=== PATIENT | male | born 1980 | race Caucasian/White ===

== ENCOUNTER 2016-08-06 09:28 | Emergency (ER) | payer OTHER ==
[~2016-08-06] VITALS: Ht 170.2 cm; Wt 69.0 kg
[2016-08-06 09:48] VITALS: Ht 170.2 cm; Wt 69.0 kg
[2016-08-06] MEDS ORDERED: IBUP400T22 PO (10:53)
--- NOTE | 2016-08-06 11:00 | ERD ---
ER Documentation Chief Complaint Date/Time DATE: 08/06/16 TIME: 10:56 Chief Complaint RING ON LEFT 4TH FINGER UNABLE TO GET OFF. HPI This is a 35-year-old male presenting to the emergency department complaining of a ring on his left fourth digit that he is unable to get off for the past 2 days. Patient states that this is a ring for his pinky finger however he put her on his left fourth digit 2 days ago. He now complains of 7 out of 10 pain with swelling of the rest of the digit. He denies any prior trauma. He denies any medical problems or taking any medications for this. Patient states that the ring is silver ROS All systems reviewed and are negative except as per history of present illness. Medications Home Meds Active Scripts Ibuprofen* (Motrin*) 400 Mg Tab, 400 MG PO Q6H Y for PAIN AND OR ELEVATED TEMP, #30 TAB Prov:SARA PACK PA-C 08/06/16 Allergies Allergies: Coded Allergies: No Known Allergy (Unverified , 08/06/16) Physical Exam Vitals Vital Signs Date Time Temp Pulse Resp B/P Pulse Ox O2 Delivery O2 Flow Rate FiO2 08/06/16 09:48 97.9 69 18 127/83 100 Physical Exam Const: Well-developed well-nourished no acute distress Head: Atraumatic Eyes: Normal Conjunctiva ENT: Normal External Ears, Nose and Mouth. Neck: Full range of motion..~ No meningismus. Resp: Clear to auscultation bilaterally Cardio: Regular rate and rhythm, no murmurs Abd: Soft, non tender, non distended. Normal bowel sounds Skin: No petechiae or rashes Back: No midline or flank tenderness Ext: Silver ring on the distal phalanx of the right fourth digit with some swelling throughout Neur: Awake and alert Psych: Normal Mood and Affect Procedures/MDM This is a 35-year-old male presenting to the emergency department complaining of an atraumatic silver ring on his 7 out of 10 and swelling of left fourth digit that he is unable to get off for the past 2 days. Patient states that this is a ring for his pinky finger however he put her on his left fourth digit 2 days ago. We have tried using lubricant to remove the ring which was unsuccessful. We have tried the string method which was also unsuccessful. A dairy laboratory technician used a running cutter and removed the left fourth digit ring. I have reexamined the patient and he had full range of motion, I doubt that patient has any fracture or dislocation. Patient was also updated on tdap today. Patient is neurovascular intact and stable for discharge. I discussed return to the emergency room for any worsening signs or symptoms. Patient understands and agrees with this plan Departure Diagnosis: Primary Impression: Foreign body of finger Condition: Stable Patient Instructions: Foreign Body, Soft Tissue (Removed) Referrals: [facility] YOU HAVE RECEIVED A MEDICAL SCREENING EXAM AND THE RESULTS INDICATE THAT YOU DO NOT HAVE A CONDITION THAT REQUIRES URGENT TREATMENT IN THE EMERGENCY DEPARTMENT. FURTHER EVALUATION AND TREATMENT OF YOUR CONDITION CAN WAIT UNTIL YOU ARE SEEN IN YOUR DOCTORS OFFICE WITHIN THE NEXT 1-2 DAYS. IT IS YOUR RESPONSIBILITY TO MAKE AN APPOINTMENT FOR FOLOW-UP CARE. IF YOU HAVE A PRIMARY DOCTOR --you should call your primary doctor and schedule an appointment IF YOU DO NOT HAVE A PRIMARY DOCTOR YOU CAN CALL OUR PHYSICIAN REFERRAL HOTLINE AT IF YOU CAN NOT AFFORD TO SEE A PHYSICIAN YOU CAN CHOSE FROM THE FOLLOWING [facility] [address] [facility]. [facility] [address] [facility] [facility] [address] [facility] [address] [facility] [address] [facility]. [facility]. [address] Additional Instructions: FOLLOW UP WITH YOUR PRIMARY CARE PHYSICIAN TOMORROW.Return to this facility if you are not improving as expected. Take all medicines as directed. Return to this facility if you are not improving as expected. SARA PACK PA-C Aug 06, 2016 11:00
[2016-08-06] MEDS ORDERED: DIPHTH/TET/ACEL PERTUSS (ADULT) 0.5 ML VIAL IM* ONE (12:00)
== END 2016-08-06 13:02 | disposition home or self-care (01) ==
LOC: FTE 09:28
DX: S60.445A External constriction of left ring finger, initial encounter (principal); W49.04XA Ring or other jewelry causing external constriction, initial encounter; Y92.9 Unspecified place or not applicable
CPT/HCPCS: 90715